=== PATIENT | male | born 1950 | race Caucasian/White ===

== ENCOUNTER 2025-10-23 15:07 | Emergency (ER) | payer BC, OTHER ==
[~2025-10-23] VITALS: Ht 167.6 cm; Wt 74.8 kg
[2025-10-23] MEDS ORDERED: FINASTERIDE5 MG PO (15:22)
[2025-10-23] MEDS ORDERED: ELIQUIS5 MG PO (15:22)
[2025-10-23] MEDS ORDERED: ISOSORBIDE MONO60 MG (15:23)
[2025-10-23] MEDS ORDERED: FUROSEMIDE20 MG PO (15:23)
[2025-10-23] MEDS ORDERED: IRON240 MG PO (15:23)
[2025-10-23] MEDS ORDERED: ROSUVASTATIN CA20 MG PO (15:24)
[2025-10-23] MEDS ORDERED: NASAL MIST126 ML (15:24)
[2025-10-23] MEDS ORDERED: SPIRONOLACTONE25 MG (15:24)
[2025-10-23] MEDS ORDERED: COZAAR50 MG (15:24)
[2025-10-23] MEDS ORDERED: LABETALOL HCL100 MG PO (15:24)
[2025-10-23] MEDS ORDERED: PRILOSEC OTC20 MG (15:24)
[2025-10-23] MEDS ORDERED: ZOLOFT100 MG (15:25)
[2025-10-23] MEDS ORDERED: 0.9 % SODIUM CHLORIDE 1,000 ML IV STA (16:49)
[2025-10-23 17:33] LABS: BASO % 0.3 % (0.1-1.2); EOS # 0.03 (0.04-0.54); EOS % 0.3 % (0.7-7.0); LYMPH # 0.92 (1.18-3.74); LYMPH % 9.5 % (19.3-53.1); MEAN PLATELET VOLUME 9.80 fl (9.4-12.4); MONO # 0.65 (0.24-0.82); MONO % 6.7 % (4.7-12.5); NEUT # 8.04 (1.56-6.13); NEUT % 82.9 % (34.0-71.1); RED CELL DISTRIBUTION WIDTH 12.5 % (11.6-14.4)
[2025-10-23 17:37] LABS: ERYTHROCYTE SEDIMENTATION RATE 15 mm/hr (0-20)
[2025-10-23 18:09] LABS: URINE APPEARANCE Clear; URINE BILIRRUBIN Negative (NEGATIVE); URINE BLOOD Negative; URINE COLOR Yellow; URINE GLUCOSE Negative (NEGATIVE); URINE KETONE Negative (NEGATIVE); URINE LEUKOCYTE Small; URINE NITRATE Negative; URINE PROTEIN Negative (NEGATIVE); URINE UROBILINOGEN 0.2 E.U./dl
[2025-10-23 18:09] LABS: INR 1.32
[2025-10-23 18:19] LABS: URINE BACTERIA 13.7 uL (0.0-1933); URINE EPITHELIAL CELLS 3.8 uL (0.0-38.8); URINE RBC 2.4 uL (0.0-20.8); URINE WBC 55.4 uL (0.0-23.2)
[2025-10-23 18:25] LABS: URINE CAST 0.56 uL (0.0-1.40)
[2025-10-23 18:26] LABS: COVID-19 AG NEGATIVE (NEGATIVE)
[2025-10-23 21:10] LABS: BUN CREA RATIO 17.0 (7.0-25.0); CREATININE SERUM 1.03 mg/dL (0.70-1.30); GFR 70.21; GLUCOSE FASTING 107.0 mg/dL (65-100)
[2025-10-23 21:11] LABS: ALT/SGPT 24.0 U/L (12-78); AST/SGOT 27.0 U/L (15-37); BILIRUBIN TOTAL 1.28 mg/dL (0.3-1.2); GLOBULINA 3.1 G/DL (2.4-3.5); OSMOLALITY SERUM 283.0 MOSM/KG (275-295)
== END 2025-10-23 18:40 | disposition home or self-care (01) ==
LOC: ER 15:07
PROVIDERS: Physician Assistant Medical
DX: G45.8 Other transient cerebral ischemic attacks and related syndromes (principal); I50.9 Heart failure, unspecified; I20.89 Other forms of angina pectoris; I11.0 Hypertensive heart disease with heart failure; I50.89 Other heart failure; Z20.822 Contact with and (suspected) exposure to COVID-19